=== PATIENT | female | born 1955 | race Caucasian/White ===

== ENCOUNTER → 2017-06-09 | Outpatient (CLI) | payer OTHER ==
[~2017-06-09] MED LIST: ADVAIR DISK28 PUFFS; ALDACTONE25 MG PO; ALORA0.05 MG/24 TD; BENICAR20 MG PO; BISOPROLOL 5MG T5 MG PO; BYSTOLIC10 MG PO; DILTIAZEM 180180 MG OR; FISH OIL1000 MG PO; NYSTATIN 1100000 UNI PO; OMEPRAZOLE20 MG PO; PHARMASSURE MA500 MG PO; PREDNISONE 20MG20 MG PO; PROVENTIL0.09 MG/A1 IH; SINGULAIR10 MG PO; SYMBICORT1 AE1 IH; VITAMIN D1000 IU PO
--- NOTE | 2017-06-10 08:19 | RADIOLOGY REPORT PS360 ---
CHEST(2 VIEWS-NOT PORTABLE) COMPARISON: PA and lateral chest 10/06/2016 HISTORY: Cough, suspect pneumonia TECHNIQUE: PA and lateral chest FINDINGS: The lung franco are well expanded and appear clear of infiltrate. There is minimal post inflammatory scarring in the lingula versus atelectasis. Cardiac size is normal and the vascularity is normal. There is a small double density seen to the cardiac shadow likely a small hiatal hernia. IMPRESSION: Nonacute chest findings
--- NOTE | 2017-06-14 16:21 | RADIOLOGY REPORT PS360 ---
DIG MAMM-SCREEN THAI W/CAD CAD Screening COMPARISON: Digital mammograms 07/01/2014 and 07/03/2015 INDICATION: There is no personal or family history of breast cancer. There has been previous biopsies on each breast TECHNIQUE: Standard CC and MLO images were obtained. R2 CAD reviewed. FINDINGS: Moderate diffuse fibro glandular densities are seen throughout both breasts. There are stable asymmetric areas of increased glandular tissue in the upper outer quadrant of each breast. There is moderate arterial calcification in each breast. There are few scattered benign-appearing calcifications each breast. There are no suspicious microcalcifications. IMPRESSION: Moderate diffuse breast density with no suspicious lesion seen recommend yearly follow-up BI-RADS CATEGORY: 2_Benign RECOMMENDED FOLLOWUP: 12M 12 MONTH FOLLOW-UP (A letter has been sent to the patient regarding results of the study.)
== END ==
LOC: RAD 16:36
DX: Z12.31 Encounter for screening mammogram for malignant neoplasm of breast (principal); J18.9 Pneumonia, unspecified organism; Z09 Encounter for follow-up examination after completed treatment for conditions other than malignant neoplasm
CPT/HCPCS: G0202